=== PATIENT | female | born 1985 | race Caucasian/White ===

== ENCOUNTER → 2020-07-10 | Outpatient (CLI) | payer OTHER, SELFPAY ==
[2020-07-16 20:57] LABS: HPV Reflexed? NOT INDICATED
== END | disposition home or self-care (01) ==
LOC: LABSPEC 07-11 09:17
PROVIDERS: Visit Provider Obstetrics & Gynecology
DX: Z12.4 Encounter for screening for malignant neoplasm of cervix (principal)
CPT/HCPCS: 88175; G0145

== ENCOUNTER → 2022-04-17 | Outpatient (CLI) | payer OTHER, SELFPAY ==
[2022-04-17 10:58] LABS: Hematocrit 36.2 % (37-47); Hemoglobin 11.6 g/dL (12.0-15.0); Mean Corpuscular Hgb 31.5 pg (27.0-32.0); Mean Corpuscular Volume 98.4 fL (81-99); Mean Platelet Vol. 10.9 fl (6.2-12.0); Platelet Count 219 K/mm3 (150-450); RBC Distribution Width CV 12.7 % (11.6-14.6); RBC Distribution Width SD 45.7 fl (35.1-43.9); Red Blood Count 3.68 M/mm3 (4.2-5.4); White Blood Count 6.8 K/mm3 (4.4-11.0)
[2022-04-17 11:07] LABS: Glucose Challenge Gest 1H 50g 105 mg/dL (70-140)
== END | disposition home or self-care (01) ==
PROVIDERS: Visit Provider Obstetrics & Gynecology
DX: Z34.82 Encounter for supervision of other normal pregnancy, second trimester (principal)
CPT/HCPCS: 36415; 82950; 85027

== ENCOUNTER → 2022-06-12 | Outpatient (CLI) | payer OTHER, SELFPAY | END | disposition home or self-care (01) | LOC: WOBLAB 13:39 | PROVIDERS: Visit Provider Obstetrics & Gynecology | DX: Z36.85 Encounter for antenatal screening for Streptococcus B (principal) | CPT/HCPCS: 87077; 87081; 87186 ==

== ENCOUNTER 2022-07-09 10:25 | Inpatient (IN) | payer SELFPAY, OTHER ==
[2022-07-09] VITALS (44 sets, daily range): BP systolic 108–189; BP diastolic 59–81; PULSE 62–107; RESP 16; TEMP 36.7–37.3; O2SAT 90–100; BMI 27.6
--- NOTE | 2022-07-09 08:11 | PCM.HP.BLA ---
History and Physical Date of Admission: 07/09/22 Chief complaint: Induction of labor AMA History present illness: 36-year-old G5, P3 at 39 weeks and 6 days with VICKI 07/10/2022 arrives for induction of labor with AMA. Denies headache, visual changes, chest pain, shortness of breath, nausea vomit, right upper quadrant pain. Patient states good movement. Obstetric history: G1: 39-week female 6 pounds 12 ounces G2: 39-week female 6 pounds G3: 40-week male 7 pounds 12 ounces G4: SAB G5: Current Past medical history: None Medications: None Past surgical history: Hand surgery Allergies: No known drug allergies Social history: Denies smoking, alcohol use, drug use Family history: Denies history DVT or PE Review of systems: Besides above pertinent positive a full review of systems was performed and found to be negative Physical exam: Vitals: Pending General: Normal-appearing no acute distress HEENT: Normocephalic atraumatic no cervical of adenopathy Cardiac/respiratory: No use of accessory muscles, nonlabored breathing Abdomen: Soft, nontender, gravid Extremities: No peripheral edema normal peripheral pulses Psych: Normal affect normal demeanor nonpressured speech Labs: Pending Assessment plan: 36-year-old G5, P3 at 39 weeks and 6 days for induction of labor with AMA Admit labor and delivery CEFM GBS positive: For penicillin Routine orders
[2022-07-09] MEDS: Lactated Ringers 1,000 ML 50 ML IV (12:12)
[2022-07-09] MEDS: Oxytocin 30 units/NS 500 ml 30 UNITS/500 ML IV.SOLN IV (12:13)
[2022-07-09 12:36] LABS: Absolute Neutrophil Count 5.9 X10^3/uL (2.0-7.7); Basophil# 0.03 X10^3/uL; Basophil% 0.4 % (0-1); Eosinophil# 0.06 X10^3/uL; Eosinophils% 0.8 % (0-5); Hemoglobin 11.4 g/dL (12.0-15.0); Lymphocyte % 17.8 % (19-41); Mean Corp Hgb Conc 31.7 g/dL (32-36); Mean Corpuscular Volume 91.6 fL (81-99); Mean Platelet Vol. 12.1 fl (6.2-12.0); Monocyte# 0.44 X10^3/uL; Monocyte% 5.6 % (0-10); NRBC Flagged by Analyzer 0 % (0-5); Neutrophil # 5.88 X10^3/uL (2.7-7.7); Neutrophil % 74.9 % (47-70); Platelet Count 185 K/mm3 (150-450); RBC Distribution Width CV 13.9 % (11.6-14.6); RBC Distribution Width SD 46.7 fl (35.1-43.9); Red Blood Count 3.93 M/mm3 (4.2-5.4); White Blood Count 7.9 K/mm3 (4.4-11.0)
[2022-07-09 13:24] LABS: Rubella IgG Reactive (Nonreactive); Syphilis Antibodies Non-reactive
[2022-07-09 13:48] LABS: HIV - WCH Non-Reactive (Nonreactive); Hepatitis B Surface Antigen Non-Reactive (Nonreactive); Hepatitis C Antibody Non-Reactive (Nonreactive)
[2022-07-09 14:51] LABS: Chlamydia Trachomatis by PCR Negative (Negative); Neisserai gonorrhoeae by PCR Negative (Negative); Probe Check PASS; Sample Adequacy Control PASS; Specimen Processing Control PASS
[2022-07-09] MEDS: Penicillin G 3,000,000 Units 50 ML 100 UNITS IV ×2 (15:59→20:31)
--- NOTE | 2022-07-09 18:25 | PN.OBGYN_ITS ---
Subjective Subjective Feeling contractions natural Objective Data Objective Data Vital Signs: Vital Signs Temp Pulse BP Pulse Ox 98.4 F 71 117/80 98 07/09/22 17:22 07/09/22 17:22 07/09/22 17:22 07/09/22 17:21 Weight: 151 lb 6 oz Body Mass Index (BMI) 27.6 Intake & Output: Intake and Output for Last 24 Hours 07/07/22 07/08/22 07/09/22 23:59 23:59 23:59 Intake Total 141.44 / 141.44 Output Total 500 / 500 Balance -358.56 / -358.56 Lab / Micro Data Result Diagrams: 07/09/22 12:15 Labs: Laboratory Results - last 24 hr 07/09/22 12:15: WBC 7.9, RBC 3.93 L, Hgb 11.4 L, Hct 36.0 L, MCV 91.6, MCH 29.0, MCHC 31.7 L, RDW Std Deviation 46.7 H, RDW Coeff of Gonzalo 13.9, Plt Count 185, MPV 12.1 H, Immature Gran % (Auto) 0.500, Neut % (Auto) 74.9 H, Lymph % (Auto) 17.8 L, [place] % (Auto) 5.6, Eos % (Auto) 0.8, Baso % (Auto) 0.4, Absolute Neuts (auto) 5.9, Absolute Lymphs (auto) 1.40, Nucleated RBC % 0 07/09/22 12:15: Blood Type Cancelled, Antibody Screen Cancelled 07/09/22 12:15: Syphilis Total Ab Non-reactive, Rubella IgG Antibody Reactive 07/09/22 12:15: Chlam trachomat DNA PCR Negative, N.gonorrhoeae DNA (PCR) Negative 07/09/22 12:15: Hep Bs Antigen Non-Reactive, Hepatitis C Antibody Non-Reactive, HIV 1&2 Antibody Non-Reactive 07/09/22 12:50: Blood Type O POSITIVE, Antibody Screen NEGATIVE Physical Exam Const alert, oriented x3, no apparent distress, average body habitus, healthy appearing and well nourished HEENT normocephalic and moist oral mucous membranes Eyes PERRL Neck full ROM Narrative: CE: 3/60/-3 AROM clear fluid Extremity normal to inspection, full ROM and no clubbing, cyanosis or edema Skin no rashes or lesions noted Neuro moves all extremities and no focal motor deficits Psych mental status grossly normal, affect normal, speech normal and activity/motor behavior normal Assessment & Plan (1) : PLAN: Pt seen and examined, AROM clear fluid. Continue to titrate pitocin
[2022-07-09] MEDS: LACTATED RINGERS 500 ML 999 ML IV (19:55)
[2022-07-09] MEDS: fentaNYL-bupivacaine (epidural) 100 ML BAG EPIDURAL (21:07)
[2022-07-09] MEDS: Oxytocin 30 units/NS 500 ml 30 UNITS/500 ML IV.SOLN 334 UNITS IV (21:32)
--- NOTE | 2022-07-09 21:43 | EX.PCM.OBRPT ---
Vaginal Delivery Findings Description of Procedure: Normal spontaneous vaginal delivery of a viable female infant, vertex KIN. Head and shoulders delivered with ease. Cord clamp and cut x2. Baby handed off to patient. Placenta delivered via cord traction and fundal massage. No lacerations noted. EBL 250cc APGARs 8/9
[2022-07-10] MEDS: 0.9% Saline Lock 10 ML Syringe IV (00:14)
[2022-07-10 04:27] VITALS: BP 96/62; PULSE 74; RESP 16; TEMP 36.9
--- NOTE | 2022-07-10 06:19 | PN.OBGYN_ITS ---
Subjective Subjective No overnight complaints. Pain well controlled. Objective Data Objective Data Vital Signs: Vital Signs Temp Pulse Resp BP Pulse Ox O2 Del Method 98.4 F 74 16 96/62 97 Room Air 07/10/22 04:27 07/10/22 04:27 07/10/22 04:27 07/10/22 04:27 07/09/22 22:54 07/10/22 04:27 Oxygen Delivery Method Room Air Weight: 151 lb 6 oz Body Mass Index (BMI) 27.6 Intake & Output: Intake and Output for Last 24 Hours 07/08/22 07/09/22 07/10/22 23:59 23:59 23:59 Intake Total 1585.17 / 1585.17 305.17 / 305.17 Output Total 900 / 900 300 / 300 Balance 685.17 / 685.17 5.17 / 5.17 Lab / Micro Data Result Diagrams: 07/09/22 12:15 Labs: Laboratory Results - last 24 hr 07/09/22 12:15: WBC 7.9, RBC 3.93 L, Hgb 11.4 L, Hct 36.0 L, MCV 91.6, MCH 29.0, MCHC 31.7 L, RDW Std Deviation 46.7 H, RDW Coeff of Gonzalo 13.9, Plt Count 185, MPV 12.1 H, Immature Gran % (Auto) 0.500, Neut % (Auto) 74.9 H, Lymph % (Auto) 17.8 L, [place] % (Auto) 5.6, Eos % (Auto) 0.8, Baso % (Auto) 0.4, Absolute Neuts (auto) 5.9, Absolute Lymphs (auto) 1.40, Nucleated RBC % 0 07/09/22 12:15: Blood Type Cancelled, Antibody Screen Cancelled 07/09/22 12:15: Syphilis Total Ab Non-reactive, Rubella IgG Antibody Reactive 07/09/22 12:15: Chlam trachomat DNA PCR Negative, N.gonorrhoeae DNA (PCR) Negative 07/09/22 12:15: Hep Bs Antigen Non-Reactive, Hepatitis C Antibody Non-Reactive, HIV 1&2 Antibody Non-Reactive 07/09/22 12:50: Blood Type O POSITIVE, Antibody Screen NEGATIVE Physical Exam Const alert, oriented x3, no apparent distress, average body habitus, healthy appearing and well nourished HEENT normocephalic and moist oral mucous membranes Eyes PERRL Neck full ROM Resp normal respiratory effort, no retractions and no use of accessory muscles GI GI Narrative: Soft, nontender, uterus firm and below umbilicus Skin no rashes or lesions noted Neuro moves all extremities and no focal motor deficits Psych mental status grossly normal, affect normal, speech normal and activity/motor behavior normal Assessment & Plan (1) Vaginal delivery: PLAN: day 1. Breast-feeding. Pain well controlled. Likely home tomorrow
[2022-07-10 08:05] VITALS: BP 104/76; PULSE 67; RESP 16; TEMP 36.6
[2022-07-10 12:15] VITALS: BP 114/72; PULSE 71; RESP 16; TEMP 36.7
[2022-07-10 16:45] VITALS: BP 110/74; PULSE 74; RESP 16; TEMP 36.6
[2022-07-10 20:12] VITALS: BP 106/67; PULSE 81; RESP 18; TEMP 36.2; O2SAT 98
[2022-07-11 00:57] VITALS: BP 116/80; PULSE 60; RESP 18; TEMP 36.4; O2SAT 99
[2022-07-11 08:03] VITALS: BP 101/73; PULSE 67; RESP 16; TEMP 36.2; O2SAT 96
[2022-07-11 08:07] VITALS: PULSE 67; RESP 16; O2SAT 96
--- NOTE | 2022-07-11 08:20 | PCM.DC.BLA ---
Discharge Summary Date of Admission: 07/09/22 Date of Discharge: 07/11/22 Summary: Patient arrived on 07/09/2022 in labor and subsequently delivered vaginally on 07/09/2022. Routine care. Discharge home on 07/11/2022 Meaningful Use Info Meaningful Use Diagnoses (Choose all that apply): None applicable Discharge Plan Admission Admit Date/Time: 07/09/22 10:25 Primary Reason for Your Visit: Labor Attending Provider: Lan Jay Primary Care Provider: Care Physician,Madyson Primary Instructions Additional Instructions / Restrictions: Regular diet. Weightbearing as tolerated. Okay to shower. No intercourse for 4 to 6 weeks. Call if chest pain, fevers, chills. Follow-up 4 to 6 weeks Discharge Orders/Prescriptions Prescriptions: No Action Prenatabs FA 1 TABLET tablet 1 tab PO DAILY Referrals / Follow Up: Care Physician,No Primary [Primary Care Provider] - Disposition Disposition (needs filled in before D/C Order can be placed): Home, Self Care
--- NOTE | 2022-07-11 08:21 | PCM.PN.OB ---
Subjective Subjective No overnight complaints Objective Data Objective Data Vital Signs: Vital Signs Temp Pulse Resp BP Pulse Ox O2 Del Method 97.1 F L 67 16 101/73 96 Room Air 07/11/22 08:03 07/11/22 08:07 07/11/22 08:07 07/11/22 08:03 07/11/22 08:07 07/11/22 08:07 Oxygen Delivery Method Room Air Weight: 151 lb 6 oz Body Mass Index (BMI) 27.6 Intake & Output: Intake and Output for Last 24 Hours 07/09/22 07/10/22 07/11/22 23:59 23:59 23:59 Intake Total 1585.17 / 1585.17 305.17 / 305.17 Output Total 900 / 900 300 / 300 Balance 685.17 / 685.17 5.17 / 5.17 Lab / Micro Data Result Diagrams: 07/09/22 12:15 Physical Exam Const alert, oriented x3, no apparent distress, average body habitus, healthy appearing and well nourished HEENT normocephalic and moist oral mucous membranes Eyes PERRL Neck full ROM Resp normal respiratory effort, no retractions and no use of accessory muscles GI GI Narrative: Soft, nontender, uterus firm and below umbilicus Extremity normal to inspection, full ROM and no clubbing, cyanosis or edema Neuro moves all extremities and no focal motor deficits Psych mental status grossly normal, affect normal, speech normal and activity/motor behavior normal Assessment & Plan (1) Vaginal delivery: PLAN: day 2. Breast-feeding. Okay to discharge home today
[2022-07-11] MEDS: Senna/Docusate Sodium 1 Tablet PO (09:38)
== END 2022-07-11 10:45 | disposition home or self-care (01) | DRG 807 ==
PROVIDERS: Student in an Organized Health Care Education/Training Program; Admitting Provider Obstetrics & Gynecology; Visit Provider Obstetrics & Gynecology
DX: O98.82 Other maternal infectious and parasitic diseases complicating childbirth (principal); Z37.0 Single live birth; B95.1 Streptococcus, group B, as the cause of diseases classified elsewhere; Z3A.39 39 weeks gestation of pregnancy
CPT/HCPCS: 59025; 59050; 85025; 86703; 86762; 86780; 86803; 86850; 86900; 86901; 87340; 87491; 87591; 99218; J7120; A4216; G0378

== ENCOUNTER → 2023-02-10 | Outpatient (CLI) | payer OTHER, SELFPAY ==
[2023-02-16 15:07] LABS: HPV APTIMA, High Risk Negative (Negative)
== END | disposition home or self-care (01) ==
LOC: WOBLAB 10:52
PROVIDERS: Visit Provider Obstetrics & Gynecology
DX: Z12.4 Encounter for screening for malignant neoplasm of cervix (principal)
CPT/HCPCS: 87624; 88175; G0145